=== PATIENT | female | born 1990 | race Caucasian/White ===

== ENCOUNTER 2016-12-23 15:43 | Emergency (ER) | payer SELFPAY ==
[2016-12-23 16:28] VITALS: TEMP 97.6
--- NOTE | 2016-12-23 16:51 | ED.PDOC ---
History of Present Illness - General Chief Complaint: Bite: Animal/Insect/Human Stated Complaint: insect bites Time Seen by Provider: 12/23/16 16:50 Source: patient, RN notes reviewed Exam Limitations: no limitations - History of Present Illness Initial Comments: Luis Antonio Kuhn 26 y/o female stated that she had multiple insect bites on her legs and both arms the last several weeks.She had previous history of adhd and ocd. Timing/Duration: other - 10 days ago Severity: moderate Location: extremities Improving Factors: nothing Worsening Factors: nothing Associated Symptoms: itching Allergies/Adverse Reactions: Allergies NO KNOWN ALLERGY Allergy (Verified 12/23/16 16:28) Home Medications: Ambulatory Orders Amoxicillin [Amoxil] 1,000 mg PO BID #30 cap 12/23/16 Doxepin HCl [Sinequan] 25 mg PO BEDTIME #14 cap 12/23/16 Review of Systems - Review of Systems Constitutional: States: no symptoms reported Respiratory: States: no symptoms reported Cardiology: States: no symptoms reported Gastrointestinal/Abdominal: States: no symptoms reported Genitourinary: States: no symptoms reported Musculoskeletal: States: no symptoms reported Skin: States: see HPI Neurological: States: emotional problems Past Medical History (General) - Patient Medical History Hx Asthma: No Hx Other PMH: Yes - ocd,adhd Surgical History: no surgical history - Vaccination History Immunizations Up to Date: Yes - Social History Hx Tobacco Use: No Hx Alcohol Use: No Hx Substance Use: No Hx Substance Use Treatment: No Hx Depression: No - Activities of Daily Living Hospice Agency (if applicable):: None - Female History Patient is a Female of Child Bearing Age (10 -59 yrs old): No Patient : No Family Medical History - Family History Mother Family History: Unknown Hx Family;Other: anxiety disorders Physical Exam - Physical Exam General Appearance: Alert, Comfortable, No apparent distress Eyes, Ears, Nose, Throat Exam: PERRL/EOMI, TMs normal Neck: non-tender, full range of motion, supple Cardiovascular/Chest: normal peripheral pulses, regular rate, rhythm, no murmur Respiratory: chest non-tender, lungs clear Gastrointestinal/Abdominal: normal bowel sounds, non tender, soft, no organomegaly Extremity: normal range of motion, non-tender, normal inspection Neurologic: alert, normal mood/affect, oriented x 3 Skin Exam: warm/dry, normal color Skin Problem Location: upper extremities - chronic excoriated skin lesion both upper and lower extremities , lower extremities Skin Character: macules, papules Lymphatic: no adenopathy Departure - Departure Clinical Impression: Dermatitis, unspecified Time of Disposition: 17:13 Disposition: Discharge to Home or Self Care Condition: Good Departure Forms: ED Discharge - Pt. Copy, Patient Portal Self Enrollment Instructions: Obsessive-Compulsive Disorder (OCD) (Alternative Therapy), Obsessive-Compulsive Personality Disorder Prescriptions: Amoxicillin [Amoxil] 1,000 mg PO BID #30 cap Doxepin HCl [Sinequan] 25 mg PO BEDTIME #14 cap Home Medications: Ambulatory Orders Amoxicillin [Amoxil] 1,000 mg PO BID #30 cap 12/23/16 Doxepin HCl [Sinequan] 25 mg PO BEDTIME #14 cap 12/23/16 Additional Instructions: NEED TO FOLLOW UP WITH NUNU 12/24/2016 call for appointment
[2016-12-23] MEDS ORDERED: TETANUS,DIPHTHERIA,PERTUSSIS 1 EA SYG IM ONE (17:10)
[2016-12-23 17:39] VITALS: BP 130/87; O2SAT 100
== END 2016-12-23 17:39 | disposition home or self-care (01) ==
LOC: ER 15:43
DX: L30.9 Dermatitis, unspecified (principal); F42.9 Obsessive-compulsive disorder, unspecified; F90.9 Attention-deficit hyperactivity disorder, unspecified type; Z23 Encounter for immunization

== ENCOUNTER 2017-05-18 11:58 | Emergency (ER) | payer SELFPAY ==
[2017-05-18 12:37] VITALS: TEMP 97.8
[2017-05-18] MEDS ORDERED: SODIUM CHLORIDE 0.9% 1000ML 1,000 ML IVS ONE (12:52)
--- NOTE | 2017-05-18 12:53 | ED.PDOC ---
History of Present Illness - General Chief Complaint: Syncope/Near Syncope Stated Complaint: Blacked out in the shower Time Seen by Provider: 05/18/17 12:50 Source: patient Exam Limitations: no limitations - History of Present Illness Initial Comments: Luis Antonio Kuhn 26 y/o female stated that she blacked out while taking a shower today and fell hitting her head on the commode .Denies headaches ,nausea/ vomiting or loss of vision. Remembers incident.No chronic medical problems.Stated just ate 6 pieces of pizza pie since yesterday.Mom was inside the bathroom with her and saw her passed out as well as helping her got up. Timing/Prior Episodes: no prior history, single episode today Precipitating Factors: other - was taking shower Context: standing Episode Description: see hpi Loss of Consciousness: brief (seconds) Current Symptoms: back to normal, other - see hpi Allergies/Adverse Reactions: Allergies NO KNOWN ALLERGY Allergy (Verified 05/18/17 12:37) Home Medications: Ambulatory Orders Amoxicillin [Amoxil] 1,000 mg PO BID #30 cap 12/23/16 Doxepin HCl [Sinequan] 25 mg PO BEDTIME #14 cap 12/23/16 Nitrofurantoin Monohydrate Mac [Macrobid] 100 mg PO BID 7 Days #14 cap 05/18/17 Review of Systems - Review of Systems Constitutional: States: no symptoms reported EENTM: States: no symptoms reported Respiratory: States: no symptoms reported Cardiology: States: no symptoms reported Gastrointestinal/Abdominal: States: no symptoms reported Genitourinary: States: no symptoms reported Musculoskeletal: States: no symptoms reported Skin: States: no symptoms reported Neurological: States: see HPI Endocrine: States: no symptoms reported Past Medical History (General) - Patient Medical History Hx Asthma: No Hx Diabetes: No Hx Other PMH: Yes - OCD Surgical History: no surgical history - Vaccination History Hx Tetanus, Diphtheria Vaccination: Yes Hx Influenza Vaccination: No - Social History Hx Tobacco Use: No Hx Alcohol Use: No Hx Substance Use: No Hx Substance Use Treatment: No Hx Depression: No Feels Threatened In Home Enviroment: No Feels Threatened In a Relationship: No - Female History Patient is a Female of Child Bearing Age (10 -59 yrs old): Yes Hx Last Menstrual Period: 04/11/17 Patient : No Physical Exam - Physical Exam General Appearance: Alert, Comfortable, No apparent distress Eyes, Ears, Nose, Throat Exam: PERRL/EOMI, normal ENT inspection, TMs normal, pharynx normal Neck: non-tender, full range of motion, supple, normal inspection Cardiovascular/Respiratory: regular rate, rhythm, no M/R/G, normal peripheral pulses, no JVD Gastrointestinal/Abdominal: normal bowel sounds, non tender, soft, no organomegaly, no pulsatile mass Back Exam: no CVA tenderness, no vertebral tenderness Extremity: normal range of motion, non-tender, no pedal edema, no calf tenderness Mental Status: alert, oriented x 3 boat deckhand Exam: normal hearing, normal speech, PERRL Coordination/Gait: normal finger to nose, negative Romberg's sign Motor/Sensory: no motor deficit, no sensory deficit, no pronator drift Skin Exam: normal color, warm/dry Lymphatic: no adenopathy Progress - Progress Progress: 05/18/17 14:50 Laboratory Last Values WBC 12.5 K/mm3 (4.8-10.8) H 05/18/17 14:03 RBC 4.91 M/mm3 (4.20-5.40) 05/18/17 14:03 Hgb 15.5 gm/dL (12.0-16.0) 05/18/17 14:03 Hct 45.5 % (36.0-47.0) 05/18/17 14:03 MCV 92.7 fl (81.0-99.0) 05/18/17 14:03 MCH 31.5 pg (27.0-31.0) H 05/18/17 14:03 MCHC 34.0 g/dL (33.0-37.0) 05/18/17 14:03 RDW 13.3 % (11.5-14.5) 05/18/17 14:03 Plt Count 238 K/mm3 (130-400) 05/18/17 14:03 MPV 8.3 fl (7.40-10.4) 05/18/17 14:03 Absolute Neuts (auto) 9.10 K/uL (1.8-6.8) H 05/18/17 14:03 Absolute Lymphs (auto) 2.30 K/uL (1.0-3.4) 05/18/17 14:03 Absolute Monos (auto) 0.90 K/uL (0.2-0.8) H 05/18/17 14:03 Absolute Eos (auto) 0.10 K/uL (0.0-0.4) 05/18/17 14:03 Absolute Basos (auto) 0.00 K/uL (0.0-0.1) 05/18/17 14:03 Neutrophils % 73.1 % (42.0-78.0) 05/18/17 14:03 Lymphocytes % 18.1 % (20.0-50.0) L 05/18/17 14:03 Monocytes % 7.3 % (2.0-9.0) 05/18/17 14:03 Eosinophils % 1.1 % (1.0-5.0) 05/18/17 14:03 Basophils % 0.4 % (0.0-2.0) 05/18/17 14:03 D-Dimer, Quantitative < 230 ng/mL (0-230) 05/18/17 14:03 Sodium 138 mmol/L (135-145) 05/18/17 14:03 Potassium 4.2 mmol/L (3.6-5.0) 05/18/17 14:03 Chloride 105 mmol/L (101-111) 05/18/17 14:03 Carbon Dioxide 24 mmol/L (21-31) 05/18/17 14:03 Anion Gap 13.2 (12-18) 05/18/17 14:03 BUN 14 mg/dL (7-18) 05/18/17 14:03 Creatinine 0.85 mg/dL (0.6-1.3) 05/18/17 14:03 BUN/Creatinine Ratio 16.5 (10-20) 05/18/17 14:03 Random Glucose 99 mg/dL (70-105) 05/18/17 14:03 Serum Osmolality 276.2 mOsm/L (275-295) 05/18/17 14:03 Calcium 9.7 mg/dL (8.4-10.2) 05/18/17 14:03 Total Bilirubin 0.5 mg/dL (0.2-1.0) 05/18/17 14:03 AST 15 IU/L (10-42) 05/18/17 14:03 ALT 11 IU/L (10-60) 05/18/17 14:03 Alkaline Phosphatase 94 IU/L (42-121) 05/18/17 14:03 Troponin I < 0.02 ng/mL (0.01-0.05) 05/18/17 14:03 Serum Total Protein 7.9 gm/dL (6.4-8.2) 05/18/17 14:03 Albumin 4.4 g/dl (3.2-5.5) 05/18/17 14:03 Globulin 3.5 gm/dL (2.3-3.5) 05/18/17 14:03 Albumin/Globulin Ratio 1.3 (1.1-1.9) 05/18/17 14:03 Serum HCG, Qual Negative 05/18/17 14:03 Urine Color Yellow (Yellow) 05/18/17 14:32 Urine Appearance Sl cloudy (Clear) 05/18/17 14:32 Urine pH 5.5 (4.5-7.8) 05/18/17 14:32 Ur Specific [place] >= 1.030 (1.005-1.030) 05/18/17 14:32 Urine Protein Trace mg/dL 05/18/17 14:32 Urine Glucose (UA) Negative mg/dL (Negative) 05/18/17 14:32 Urine Ketones 40 mg/dL (NEGATIVE) H 05/18/17 14:32 Urine Blood Negative (Negative) 05/18/17 14:32 Urine Nitrite Negative 05/18/17 14:32 Urine Bilirubin Small (NEGATIVE) H 05/18/17 14:32 Urine Urobilinogen 1.0 mg/dL (0.2-1.0) 05/18/17 14:32 Ur Leukocyte Esterase Negative (Negative) 05/18/17 14:32 Urine RBC 3-5 /hpf H 05/18/17 14:32 Urine WBC 10-20 /hpf H 05/18/17 14:32 Ur Epithelial Cells 5-10 /hpf 05/18/17 14:32 Amorphous Sediment 1+ 05/18/17 14:32 Urine Bacteria 2+ H 05/18/17 14:32 Urine Mucus Moderate 05/18/17 14:32 Urine Opiates Screen Negative ng/mL (1999) 05/18/17 12:50 Urine Barbiturates Negative ng/mL (200) 05/18/17 12:50 Ur Phencyclidine Scrn Negative ng/mL (25) 05/18/17 12:50 U Amphetamin/Meth Scrn Negative ng/mL (1000) 05/18/17 12:50 U Benzodiazepines Scrn Negative ng/mL (200) 05/18/17 12:50 U Cocaine Metab Screen Negative ng/mL (300) 05/18/17 12:50 U Cannabinoids Screen Negative ng/mL (50) 05/18/17 12:50 - Results/Orders Results/Orders: Last Vital Signs Temp 97.8 F 05/18/17 12:33 Pulse 98 H 05/18/17 13:55 Resp 16 05/18/17 13:55 BP 106/90 05/18/17 13:55 Pulse Ox 100 05/18/17 13:55 - EKG/XRAY/CT EKG: Sinus, no ST T wave changes Comments: heart rate71 Departure - Departure Clinical Impression: Syncope Qualifiers: Syncope type: unspecified Qualified Code(s): R55 - Syncope and collapse Urinary tract infection Qualifiers: Urinary tract infection type: site unspecified Hematuria presence: without hematuria Qualified Code(s): N39.0 - Urinary tract infection, site not specified Time of Disposition: 14:52 Disposition: Discharge to Home or Self Care Condition: Good Departure Forms: ED Discharge - Pt. Copy, Patient Portal Self Enrollment Instructions: DI for Syncope in Adults (Fainting), DI for Urinary Tract Infection (UTI), Bladder Infection (Alternative Therapy), Urinary Tract Infection Prescriptions: Nitrofurantoin Monohydrate Mac [Macrobid] 100 mg PO BID 7 Days #14 cap Home Medications: Ambulatory Orders Amoxicillin [Amoxil] 1,000 mg PO BID #30 cap 12/23/16 Doxepin HCl [Sinequan] 25 mg PO BEDTIME #14 cap 12/23/16 Nitrofurantoin Monohydrate Mac [Macrobid] 100 mg PO BID 7 Days #14 cap 05/18/17 Additional Instructions: NEED TO SIGN UP WITH PRIMARY MD;Return to ER as needed
[2017-05-18] MEDS ORDERED: NITROFURANTOIN MONOHYDRATE MAC 100 MG CAP PO ONE (14:49)
[2017-05-18 15:17] VITALS: BP 132/73; O2SAT 99
== END 2017-05-18 15:19 | disposition home or self-care (01) ==
LOC: ER 11:58
DX: R55 Syncope and collapse (principal); N39.0 Urinary tract infection, site not specified

== ENCOUNTER 2019-03-28 01:03 | Emergency (ER) | payer SELFPAY ==
[2019-03-28 01:15] VITALS: BP 133/83; TEMP 99; O2SAT 98
--- NOTE | 2019-03-28 01:25 | ED.PDOC ---
History of Present Illness - General Chief Complaint: Respiratory Problem Stated Complaint: feels SOB, cough, congestion, runny nose Time Seen by Provider: 03/28/19 01:21 - History of Present Illness Comments: Pt c/o cough and congestion associated with some wheezing and sob for few hours Cough Quality/Degree: moderate, dry cough Improving Factors: nothing Worsening Factors: nothing Associated Symptoms: shortness of breath, wheezing Allergies/Adverse Reactions: Allergies NO KNOWN ALLERGY Allergy (Verified 03/28/19 01:15) Home Medications: Ambulatory Orders Albuterol Inhaler [Ventolin Hfa Inhaler] 1 puff INH QID 10 Days inh 03/28/19 Azithromycin [Zithromax] 500 mg PO DAILY #3 tab 03/28/19 Benzonatate Perles [Tessalon Perles] 200 mg PO TID #10 cap 03/28/19 Review of Systems - Review of Systems Constitutional: States: no symptoms reported EENTM: States: no symptoms reported Respiratory: States: see HPI Cardiology: States: no symptoms reported Gastrointestinal/Abdominal: States: no symptoms reported Genitourinary: States: no symptoms reported Musculoskeletal: States: no symptoms reported Skin: States: no symptoms reported Neurological: States: no symptoms reported Endocrine: States: no symptoms reported Hematologic/Lymphatic: States: no symptoms reported Past Medical History (General) - Patient Medical History Hx Seizures: No Hx Stroke: No Hx Dementia: No Hx Asthma: No Hx of COPD: No Hx Cardiac Disorders: No Hx Congestive Heart Failure: No Hx Pacemaker: No Hx Hypertension: No Hx Thyroid Disease: No Hx Diabetes: No Hx Gastroesophageal Reflux: No Hx Renal Disease: No Hx Cancer: No Hx of HIV: No Hx Hepatitis C: No Hx MRSA: No Surgical History: no surgical history - Vaccination History Hx Tetanus, Diphtheria Vaccination: No Hx Influenza Vaccination: No - Social History Hx Tobacco Use: Yes Hx Alcohol Use: Yes Hx Substance Use: No Hx Substance Use Treatment: No Hx Depression: No - Female History Hx Last Menstrual Period: 04/11/17 Patient : No Family Medical History - Family History Mother Family History: Unknown Hx Family;Other: anxiety disorders Physical Exam - Physical Exam General Appearance: Alert, Comfortable Eye Exam: bilateral normal ENT Exam: hearing grossly normal, TMs normal, pharynx normal Neck: full range of motion, supple, normal inspection Respiratory: lungs clear, normal breath sounds, no respiratory distress, no accessory muscle use Cardiovascular/Chest: regular rate, rhythm Extremity: non-tender, normal inspection 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 Copy, Patient Portal Self Enrollment Diet: resume usual diet Activity: increase activity as tolerated, walking as tolerated Prescriptions: Azithromycin [Zithromax] 500 mg PO DAILY #3 tab Home Medications: Ambulatory Orders Albuterol Inhaler [Ventolin Hfa Inhaler] 1 puff INH QID 10 Days inh 03/28/19 Azithromycin [Zithromax] 500 mg PO DAILY #3 tab 03/28/19 Benzonatate Perles [Tessalon Perles] 200 mg PO TID #10 cap 03/28/19
--- NOTE | 2019-03-28 01:33 | RAD ---
EXAM: XR Chest, 1 View CLINICAL HISTORY: 28 years old Female; sob. TECHNIQUE: Frontal view of the chest. COMPARISON: No relevant prior studies available. FINDINGS: LUNGS: Lungs clear of focal infiltrate or mass. PLEURAL SPACE: No pleural fluid. No pneumothorax. HEART: Heart not enlarged. MEDIASTINUM: Unremarkable. BONES/JOINTS: No acute bony abnormality seen. IMPRESSION: - No acute cardiopulmonary pathology seen. Thank you for allowing us to participate in the care of this patient. Electronically signed by: Román Singh MD 03/28/2019 1:32 AM [facility]
== END 2019-03-28 01:38 | disposition home or self-care (01) ==
LOC: ER 01:03
DX: J20.9 Acute bronchitis, unspecified (principal); Z87.891 Personal history of nicotine dependence

== ENCOUNTER 2020-02-20 19:25 | Emergency (ER) | payer SELFPAY ==
[2020-02-20 19:45] VITALS: TEMP 96.9; O2SAT 99
[2020-02-20] MEDS ORDERED: IPRATROPIUM/ALBUTEROL 3 ML VIAL NEB ONE (19:53)
--- NOTE | 2020-02-20 20:24 | ED.PDOC ---
History of Present Illness - General Chief Complaint: Respiratory Problem Stated Complaint: cough, SOB Time Seen by Provider: 02/20/20 19:53 Source: patient, RN notes reviewed, Vital Signs reviewed, family - mother Exam Limitations: no limitations - History of Present Illness Initial Comments: Patient is a 29-year-old white female who presents with complaints of cough and shortness of breath. Patient denies any fever and has intermittent productive cough for yellow sputum. This cough and shortness of breath started yesterday. Timing/Duration: 24 hours Severity: moderate Improving Factors: nothing Worsening Factors: nothing Associated Symptoms: cough, shortness of breath Allergies/Adverse Reactions: Allergies NO KNOWN ALLERGY Allergy (Verified 02/20/20 19:47) Home Medications: Ambulatory Orders Methylprednisolone [Medrol Dose Suhas] 4 mg PO DAILY 6 Days #21 tab 02/20/20 Review of Systems - Review of Systems Constitutional: States: no symptoms reported, see HPI. Denies: chills, fever, malaise, weakness EENTM: States: no symptoms reported. Denies: eye pain, blurred vision, double vision Respiratory: States: see HPI, cough, short of breath. Denies: stridor, wheezing Cardiology: States: no symptoms reported. Denies: chest pain, palpitations, syncope Gastrointestinal/Abdominal: States: no symptoms reported. Denies: abdominal pain, diarrhea, nausea, vomiting Genitourinary: States: no symptoms reported. Denies: dysuria Musculoskeletal: States: no symptoms reported. Denies: back pain, neck pain Skin: States: no symptoms reported. Denies: change in color, rash Neurological: States: no symptoms reported. Denies: tingling, tremors, weakness Endocrine: States: no symptoms reported. Denies: increased hunger, increased thirst, increased urine All other Systems: Reviewed and Negative Past Medical History (General) - Patient Medical History Hx Seizures: No Hx Stroke: No Hx Dementia: No Hx Asthma: No Hx of COPD: No Hx Cardiac Disorders: No Hx Congestive Heart Failure: No Hx Pacemaker: No Hx Hypertension: No Hx Thyroid Disease: No Hx Diabetes: No Hx Gastroesophageal Reflux: No Hx Renal Disease: No Hx Cancer: No Hx of HIV: No Hx Hepatitis C: No Hx MRSA: No Surgical History: no surgical history - Vaccination History Hx Tetanus, Diphtheria Vaccination: No Hx Influenza Vaccination: No Hx Pneumococcal Vaccination: No Immunizations Up to Date: No - Social History Hx Tobacco Use: Yes - Pack a week Hx Chewing Tobacco Use: No Hx Alcohol Use: Yes Hx Substance Use: No Hx Substance Use Treatment: No Hx Depression: No Feels Threatened In Home Enviroment: No Feels Threatened In a Relationship: No Hx Physical Abuse: No Hx Emotional Abuse: No Hx Suspected Abuse: No - Female History Patient is a Female of Child Bearing Age (10 -59 yrs old): Yes Hx Last Menstrual Period: 04/11/17 Patient : No - Triage Comment ED Triage Comment: The patient was alert and oriented times 4 and did not appear in distress. She complained of cough for 2 days and cold like symptoms. She did not appear short of breath and had no cough noted at time of assessment. Family Medical History - Family History Mother Family History: Unknown Hx Family;Other: anxiety disorders Physical Exam - Physical Exam General Appearance: Alert, Comfortable, Unkempt, Well Developed, Well Hydrated, Well Nourished Eye Exam: bilateral normal Ears, Nose, Throat: hearing grossly normal, normal ENT inspection, normal pharynx Neck: non-tender, full range of motion, supple Respiratory: chest non-tender, no accessory muscle use, decreased breath sounds, rhonchi Cardiovascular/Chest: normal peripheral pulses, regular rate, rhythm, no edema, no gallop, no JVD, no murmur Peripheral Pulses: radial,right: 2+ Gastrointestinal/Abdominal: normal bowel sounds, non tender, soft Back Exam: normal inspection, no CVA tenderness, no vertebral tenderness Extremity: normal range of motion, non-tender, normal inspection 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 02/20/20 20:39 Patient is improved after neb treatment. Chest x-ray does not show any pneumonia. Patient refused COVID testing. Plan on discharge home with a prescription for steroids and follow-up with her PCP. I discussed this plan of care with the patient she voices understanding and agreement. Edgar Scott M.D. #[id number] - Results/Orders Results/Orders: EXAM DESCRIPTION: Chest,1 View CLINICAL HISTORY: 29 years Female, cough and sob. COMPARISON: 03/28/2019 TECHNIQUE: Single AP chest radiograph. FINDINGS: Clear lungs. No pneumothorax or pleural effusion. Normal cardiomediastinal contour. Normal osseous structures. IMPRESSION: 1. No discrete active cardiopulmonary process. Please note that chest radiographs have low sensitivity for detection of subtle groundglass opacities. Electronically signed by: Eber Carvajal MD 02/20/2020 8:23 PM Departure - Departure Clinical Impression: Viral upper respiratory tract infection with cough, Nicotine use disorder Time of Disposition: 20:45 Disposition: Discharge to Home or Self Care Condition: Good Departure Forms: ED Discharge - Pt. Copy, Patient Portal Self Enrollment Instructions: Viral Upper Respiratory Infection, Adult (DC) Diet: resume usual diet Activity: increase activity as tolerated Referrals: EBER YOST IV, [facility] [Active Staff] - 1-5 Days Prescriptions: Methylprednisolone [Medrol Dose Suhas] 4 mg PO DAILY 6 Days #21 tab Home Medications: Ambulatory Orders Methylprednisolone [Medrol Dose Suhas] 4 mg PO DAILY 6 Days #21 tab 02/20/20
[2020-02-20 20:52] VITALS: BP 141/84
== END 2020-02-20 20:52 | disposition home or self-care (01) ==
LOC: ER 19:25
DX: J06.9 Acute upper respiratory infection, unspecified (principal); F17.210 Nicotine dependence, cigarettes, uncomplicated
CPT/HCPCS: 71045; 81001; J7620